=== PATIENT | male | born 1955 | race Two or more races ===

== ENCOUNTER 2018-02-05 09:58 | Day surgery (SDC) | payer OTHER ==
[2018-02-05] MEDS ORDERED: PROPOFOL 40 ML (13:03)
== END 2018-02-05 16:57 | disposition home or self-care (01) ==
LOC: GIL 09:58
DX: K29.30 Chronic superficial gastritis without bleeding (principal); K44.9 Diaphragmatic hernia without obstruction or gangrene; K21.9 Gastro-esophageal reflux disease without esophagitis
CPT/HCPCS: 43239; 88305; 88312